=== PATIENT | female | born 1970 | race African-American/Black ===

== ENCOUNTER → 2025-04-19 | Outpatient (CLI) | payer OTHER, SELFPAY ==
[2025-04-19 17:47] LABS: Basophils # (Auto) 0.1 Thou/mm3 (0.0-0.2); Basophils % (Auto) 1 % (0-2.5); Eosinophils # (Auto) 0.1 Thou/mm3 (0.0-0.5); Eosinophils % (Auto) 1 % (0-10); Hematocrit 38.6 % (36.0-46.0); Hemoglobin 12.8 g/dL (12.0-16.0); Immature Granulocytes Auto 0.03 Thou/mm3 (0.00-0.00); Lymphocytes # (Auto) 2.1 Thou/mm3 (1.0-4.8); Lymphocytes % (Auto) 23 % (10-50); Mean Corpuscular HGB Conc 33.2 g/dl (31.0-37.0); Mean Corpuscular Hemoglobin 30.5 pg (25.0-35.0); Mean Corpuscular Volume 92 fL (80-100); Monocytes # (Auto) 0.8 Thou/mm3 (0.0-0.8); Monocytes % (Auto) 9 % (0-12); Neutrophils # (Auto) 6.2 Thou/mm3 (1.8-7.7); Neutrophils % (Auto) 67 % (37-80); Nucleated Red Blood Cell # 0.00 Thou/mm3 (0.00-0.00); Nucleated Red Blood Cell % 0 /100 WBC (0); Platelet Count 310 Thou/mm3 (140-440); RDW Standard Deviation 45.1 fL (36.4-46.3); Red Blood Count 4.20 Miln/mm3 (4.00-5.20); White Blood Count 9.2 Thou/mm3 (3.6-11.0)
[2025-04-19 17:54] LABS: Sed Rate (ESR) 38 mm/hr (0-30)
[2025-04-19 18:04] LABS: Alanine Aminotransferase 17 U/L (10-49); Aspartate Amino Transferase 19 U/L (0-34); C-Reactive Protein < 0.5 mg/dL (0.0-0.9); Creatine Kinase 123 U/L (34-171); Creatinine (Component) 0.8 mg/dL (0.6-1.3); Uric Acid 5.7 mg/dL (3.1-7.8); eGFR > 60 See Note
== END | disposition home or self-care (01) ==
LOC: COPL 16:47
PROVIDERS: PCP Family Medicine; Referring Provider Internal Medicine Rheumatology; Visit Provider Internal Medicine Rheumatology
DX: M25.50 Pain in unspecified joint (principal)
CPT/HCPCS: 36415; 82550; 82565; 84450; 84460; 84550; 85025; 85652; 86140

== ENCOUNTER 2025-04-30 13:45 | Emergency (ER) | payer OTHER, SELFPAY ==
[2025-04-30 13:59] VITALS: BP 170/75; PULSE 85; RESP 18; TEMP 37.1; O2SAT 97; BMI 40.8
--- NOTE | 2025-04-30 14:14 | PD.EDRME ---
Rapid Medical Screening Exam E Arrival date/time: 04/30/25 13:45 54-year-old female with no known medical history presents to the emergency room with a chief complaint of jaw tightness and pain x 2 days. Patient states she was sent over by her primary care provider. Patient states 3 weeks ago she was cut by a gabriela metal on her right ankle. I have greeted and performed a focused initial assessment of this patient. A comprehensive ED assessment and evaluation of the patient, analysis of all test results, and completion of the medical decision making process will be conducted by additional ED providers. Chief Complaint: General Adult/Misc Complain Vital signs: Vital Signs Temperature 98.7 F 04/30/25 13:59 Pulse Rate 85 04/30/25 13:59 Respiratory Rate 18 04/30/25 13:59 Blood Pressure 170/75 H 04/30/25 13:59 Pulse Oximetry (%) 97 04/30/25 13:59 Oxygen Delivery Method Room Air 04/30/25 13:59 Vital signs reviewed by provider: Yes
--- NOTE | 2025-04-30 14:39 | PD.EDADULT ---
ED General RME/HPI General Chief complaint: General Adult/Misc Complain Stated complaint: SENY BY PCP, FOR JAWLOCK/PAIN AND NECK PAIN Time Seen by Provider: 04/30/25 14:18 Arrival date/time: 04/30/25 13:45 Limitations: no limitations RME / HPI RME / HPI narrative: 04/30/25 13:45 54-year-old female with no known medical history presents to the emergency room with a chief complaint of jaw tightness and pain x 2 days. Patient states she was sent over by her primary care provider. Patient states 3 weeks ago she was cut by a gabriela metal on her right ankle. I have greeted and performed a focused initial assessment of this patient. A comprehensive ED assessment and evaluation of the patient, analysis of all test results, and completion of the medical decision making process will be conducted by additional ED providers. DR. FRANCISCO MAIN ED EVALUATION: 54 year old female with history of Sjogren's syndrome presents to the ED referred by PCP for evaluation of jaw pain and tightness beginning 2 days ago. Reports difficulty opening her mouth due to pain. Additionally complains of a sharp pain to her right upper back beginning today. Patient mentioned 2 weeks ago her foot was cut by a gabriela piece of metal. During that time did not receive a tetanus vaccine and her PCP today advised she come to the ED to rule out tetanus. Patient states she had her primary series of tetanus vaccines as child, age 14, and in her 20s. Doesn't recall last tetnaus (known total of ~ 7 shots). Denies fevers, or muscle dysfunction except the right jaw. Related Data Allergies Allergy/AdvReac Type Severity Reaction Status Date / Time No Known Allergies Allergy Unverified 04/30/25 14:13 Review of Systems Review of Systems Systems Reviewed: All systems reviewed, normal except as documented Past Medical History Social History SMOKING STATUS: Never smoker ED Exam General Limitations: Present no limitations General appearance: Present alert and in no apparent distress Head Head exam: Present atraumatic, normocephalic and normal inspection Eye Eye exam: Present normal appearance, PERRL and EOMI ENT ENT exam: Present mucous membranes moist and other (No tenderness to palpation of the right TMJ, patient is able to open mouth approx 2cm, oral mucousa appears normal, oral pharynx appears normal. ) Neck Neck exam: Present normal inspection, full ROM and trachea midline Chest Chest inspection: Present normal inspection and symmetric chest wall rise Respiratory Respiratory exam: Present normal lung sounds bilaterally Cardiovascular Cardiovascular exam: Present regular rate, normal rhythm and normal heart sounds Abdominal Exam Abdominal exam: Present soft and normal bowel sounds Extremities Exam Extremities exam: Present normal inspection and full ROM Back Exam Back exam: Present other (rigth sternocleidomastoid trigger point tenderness, right rhomboid muscle tenderness, right trapezius tenderness ) Neurological Exam Neurological exam: Present alert, oriented X3 and CN II-XII intact Psychiatric Psychiatric exam: Present normal affect and normal mood Skin Skin exam: Present warm, dry, intact and normal color Course Quality Measures none Orders Category Date Time Status CBC Stat Lab 04/30/25 15:15 Completed CMP [Comprehensive Metabolic Panel] Stat Lab 04/30/25 15:15 Completed CRP [C-Reactive Protein] Stat Lab 04/30/25 15:15 Completed ESR [Sed Rate (ESR)] Stat Lab 04/30/25 15:15 Completed Misc Send Out* Stat Lab 04/30/25 15:15 Received TET,DIP/PERT AC (Adult)-Tdap [Boostrix Adult (Tdap) Med 04/30/25 14:10 Discontinued Vacc] 0.5 ml IMI .ONCE ONE Tetanus Immune Globulin [Baytet Inj] Med 04/30/25 14:10 Discontinued 250 unit IM X1 ONE Vital Signs Vital signs: Vital Signs Temperature 98.7 F 04/30/25 13:59 Pulse Rate 85 04/30/25 13:59 Respiratory Rate 18 04/30/25 13:59 Blood Pressure 170/75 H 04/30/25 13:59 Pulse Oximetry (%) 97 04/30/25 13:59 Oxygen Delivery Method Room Air 04/30/25 13:59 Pulse ox is 97% on room air which is adequate. Discharge Plan Plan Patient Disposition: HOME (Self Care) Prescriptions/Referrals Referrals: Kay Rojo PA-C [Primary Care Provider] - In 1 week Problem List Clinical Impression: Jaw pain, Musculoskeletal pain Patient/Caregiver Discharge Instructions Education Materials: ED Myalgias Additional Instructions: Follow-up with your primary care doctor in 3 to 5 days for recheck. You can return to the emergency department sooner if symptoms worsen or if you notice any new, concerning issues. For pain, take both 1-2 Tylenol 500mg tablets every 6 hours AND 2 Advil Gel 200mg capsules every 6 hours. Print Language: Tamazight Stand Alone Forms: Mayra Award Info., Patient Portal Info Letter MDM Narrative MDM hospital course: IAlma Rosa am scribing for and in the presence of Dr. Francisco. 54 year old was sent by her PCP for concerns of tetanus. Patient doesn't recall her last tetanus and based on the exam and symptoms, it is highly unlikely. We have sent off a tetanus antitoxoid antibody as a send out. We have given the patient a tetanus vaccine and immunoglobulin. Patient will follow up with PCP next Saturday. Advised she take Tylenol and Motrin for pain . Advised she also see a dentist as soon as possible. Clinical Information Provided by patient Medical Records Reviewed [facility] Meds/Rx Considered, not Ordered None Labs/Rad/Tests considered, not Ordered None Chronic Illness/Social Conditions which may negatively complicate care or outcome(s)-explain: None or not applicable EKG EKG not done Lab Interpretation Labs: interpreted by or Lab(s) interpretation(s): CBC and CMP within normal limits Imaging Imaging interpretation: none Medication Administration(s) Medication Administration History Discontinued Medications Diphtheria/Tetanus/Acell Pertussis (Diphth,Pertuss(Acell),Tet Vac 0.5 Ml Syr- Adult) 0.5 ml IMi .ONCE ONE Stop: 04/30/25 14:11 Last Admin: 04/30/25 14:49 Dose: 0.5 ml Documented By: Tetanus Immune Globulin (Tetanus Immune Globulin 250 Unit Syringe) 250 unit IM X1 ONE Stop: 04/30/25 14:11 Last Admin: 04/30/25 14:51 Dose: 250 unit Documented By: See above Diagnosis Most likely dx, and/or detailed dx discussion: Jaw pain Musculoskeletal pain Dispositon Disposition: Discharge Home
[2025-04-30] MEDS: DIPHTH,PERTUSS(ACELL),TET VAC 0.5 ML SYR- ADULT IMi (14:49)
[2025-04-30] MEDS: TETANUS IMMUNE GLOBULIN 250 UNIT SYRINGE IM (14:51)
[2025-04-30 15:28] LABS: Misc Send Out* See Sep Rpt
[2025-04-30 15:31] LABS: Basophils # (Auto) 0.0 Thou/mm3 (0.0-0.2); Basophils % (Auto) 1 % (0-2.5); Eosinophils # (Auto) 0.0 Thou/mm3 (0.0-0.5); Eosinophils % (Auto) 0 % (0-10); Hematocrit 38.4 % (36.0-46.0); Hemoglobin 12.8 g/dL (12.0-16.0); Immature Granulocytes Auto 0.04 Thou/mm3 (0.00-0.00); Lymphocytes # (Auto) 1.4 Thou/mm3 (1.0-4.8); Lymphocytes % (Auto) 16 % (10-50); Mean Corpuscular HGB Conc 33.3 g/dl (31.0-37.0); Mean Corpuscular Hemoglobin 30.8 pg (25.0-35.0); Mean Corpuscular Volume 93 fL (80-100); Monocytes # (Auto) 0.9 Thou/mm3 (0.0-0.8); Monocytes % (Auto) 10 % (0-12); Neutrophils # (Auto) 6.2 Thou/mm3 (1.8-7.7); Neutrophils % (Auto) 73 % (37-80); Nucleated Red Blood Cell # 0.00 Thou/mm3 (0.00-0.00); Nucleated Red Blood Cell % 0 /100 WBC (0); Platelet Count 321 Thou/mm3 (140-440); RDW Standard Deviation 45.7 fL (36.4-46.3); Red Blood Count 4.15 Miln/mm3 (4.00-5.20); White Blood Count 8.6 Thou/mm3 (3.6-11.0)
[2025-04-30 15:49] LABS: Alanine Aminotransferase 15 U/L (10-49); Albumin, Serum 4.0 gm/dL (3.5-5.0); Albumin/Globulin Ratio 1.3 (1.2-2.2); Alkaline Phosphatase 58 U/L (46-116); Anion Gap 7 (7-16); Aspartate Amino Transferase 18 U/L (0-34); BUN/Creatinine Ratio 9 Ratio (12-20); Bilirubin,Total 0.4 mg/dL (0.3-1.2); Blood Urea Nitrogen 7 mg/dL (9-23); C-Reactive Protein 0.6 mg/dL (0.0-0.9); Calcium 9.4 mg/dL (8.3-10.6); Calcium (Corrected) 9.4 mg/dL (8.5-10.1); Carbon Dioxide 28.5 mMol/L (20.0-31.0); Chloride 103 mMol/L (98-107); Creatinine (Component) 0.8 mg/dL (0.6-1.3); Estimated Creatinine Clearance 96.5 mL/min (>60); Globulin 3.0 gm/dL (2.3-3.5); Glucose 114 mg/dL (74-106); Osmolality,Calculated 274 (275-295); Potassium 4.0 mMol/L (3.4-5.1); Sodium 138 mMol/L (136-145); Total Protein 7.0 gm/dL (5.7-8.2); eGFR > 60 See Note
[2025-04-30 16:27] LABS: Sed Rate (ESR) 48 mm/hr (0-30)
== END 2025-04-30 18:49 | disposition home or self-care (01) ==
PROVIDERS: Nurse Practitioner Family; Emergency Provider Family Medicine; PCP Specialist
DX: R68.84 Jaw pain (principal); Z23 Encounter for immunization
CPT/HCPCS: 36415; 80053; 85025; 85652; 86140; 86774; 90471; 90715; 96372; 99282; J1670

== ENCOUNTER → 2025-07-21 | Outpatient (CLI) | payer OTHER, SELFPAY ==
--- NOTE | 2025-07-21 15:30 | XR_ITS ---
EXAMINATION: Thyroid sonography complete TECHNIQUE: Grayscale sonographic images thyroid lobes Date and time: July 21, 2025: 1517 hours INDICATIONS: Diagnosis nontoxic goiter FINDINGS: Right thyroid 4.8 cm Mid pole nodule 6 x 4 mm Mid pole cyst 2 x 2 mm Left thyroid 5.0 cm Lower pole nodule 7 x 6 mm Cyst in the lower pole 2 x 2 mm IMPRESSION: Thyroid nodules as above
== END | disposition home or self-care (01) ==
LOC: CDIM 15:11
PROVIDERS: PCP Nurse Practitioner Family; Referring Provider Nurse Practitioner Family; Visit Provider Nurse Practitioner Family
DX: E04.2 Nontoxic multinodular goiter (principal)
CPT/HCPCS: 76536

== ENCOUNTER → 2025-08-06 | Outpatient (CLI) | payer OTHER, SELFPAY ==
--- NOTE | 2025-08-06 16:43 | XR_ITS ---
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
--- NOTE | 2025-08-06 16:43 | XR_ITS ---
Examination: Ankle Bilateral, 6 views Technique: AP of [place] each ankle total 6 views INDICATIONS: Bilateral ankle pain 2 months no trauma Date and time of exam: August 06, 2025, 1652 hours Findings: Acute appearing fracture right medial malleolus without significant displacement Left ankle intact No ankle dislocations Large plantar bony calcaneal spurs bilaterally IMPRESSION: Acute appearing nondisplaced fracture right medial malleolus
== END | disposition home or self-care (01) ==
LOC: CDIM 16:37
PROVIDERS: PCP Nurse Practitioner Family; Referring Provider Family Medicine; Visit Provider Family Medicine
DX: S82.54XA Nondisplaced fracture of medial malleolus of right tibia, initial encounter for closed fracture (principal); X58.XXXA Exposure to other specified factors, initial encounter; M19.072 Primary osteoarthritis, left ankle and foot; M19.071 Primary osteoarthritis, right ankle and foot; M77.32 Calcaneal spur, left foot; M77.31 Calcaneal spur, right foot
CPT/HCPCS: 73610; 73630

== ENCOUNTER → 2025-08-23 | Outpatient (CLI) | payer OTHER, SELFPAY ==
[2025-08-23 15:56] LABS: Misc Send Out* See Sep Rpt
[2025-08-23 16:15] LABS: Collection Type, Urine Clean Catch; RBC,Urine 0 /hpf (0-3); WBC,Urine 0 /hpf (0-5)
[2025-08-23 17:02] LABS: Ferritin 29 ng/mL (7.3-270.7); Iron 49 mcg/dL (50-170); Percent Iron Saturation 14 % (20-55); Total Iron Binding Capacity 346 mcg/dL (250-425); Unsaturated Iron Binding 297 (225-295)
[2025-08-23 17:03] LABS: Folate 20.80 ng/mL (>5.38); Vitamin B12 1284 pg/mL (211-911)
[2025-08-23 17:51] LABS: Bacteria,Urine Rare; Bilirubin,Urine Negative (Negative); Blood,Urine Negative (Negative); Clarity,Urine Clear (Clear/Hazy); Color,Urine Yellow (Lt Yel-Yel); Glucose, Urine Negative (Negative); Ketones,Urine Negative (Negative); Leukocyte Esterase,Urine Negative (Negative); Nitrite,Urine Negative (Negative); PH,Urine 6.0 (5.0-7.0); Protein,Urine Trace (Neg - Trace); Specific Gravity,Urine 1.023 (1.001-1.035); Squamous Epithelial Cell,Urine 1 /hpf (0-5); Urobilinogen,Urine Negative mg/dL (0.0-1.0)
[2025-08-23 18:03] LABS: Creatinine MALB Rnd Ur 115 mg/dL (30-125); Microalbumin, Random Urine < 3 mg/L (0-300)
== END | disposition home or self-care (01) ==
LOC: COPL 15:28
PROVIDERS: PCP Family Medicine; Referring Provider Nurse Practitioner Family; Visit Provider Nurse Practitioner Family
DX: R80.9 Proteinuria, unspecified (principal); L65.9 Nonscarring hair loss, unspecified
CPT/HCPCS: 36415; 81001; 82043; 82570; 82607; 82728; 82746; 83540; 83550; 84255; 87086